=== PATIENT | female | born 1985 | race African-American/Black ===

== ENCOUNTER 2024-05-30 09:41 | Emergency (ER) | payer MEDICAID ==
[~2024-05-30] VITALS: Ht 160 cm; Wt 79.6 kg
[2024-05-30] VITALS (12 sets, daily range): BP systolic 91–109; BP diastolic 62–74
[~2024-05-30 09:41] MED LIST: FERROUS SULF325 M3 PO; MOTRIN400 MG/TAB PO; NAPROXEN375 MG PO
[2024-05-30] MEDS ORDERED: SODIUM CHLORIDE 0.9% 1,000 ML IV ONE (10:00)
[2024-05-30 10:28] LABS: URINE BILIRUBIN - DIPSTICK Negative (NEGATIVE); URINE BLOOD DIPSTICK Large (NEGATIVE); URINE GLUCOSE - DIPSTICK Negative (NEGATIVE); URINE KETONE Negative (NEGATIVE); URINE LEUK ESTERASE Negative (NEGATIVE); URINE NITRITE - DIPSTICK Negative (Negative); URINE PH 5.5 (4.5-8.0); URINE PROTEIN - DIPSTICK 30 mg/dL (NEG-TRACE); URINE UROBILINOGEN - DIPSTICK 0.2 E.U./dL (0.2)
[2024-05-30 10:28] LABS: BASO% 0.2 % (0-3); EOS% 3.3 % (0-8); HEMATOCRIT 23.3 % (37.0-47.0); HEMOGLOBIN 7.1 g/dl (12.0-16.0); IMMATURE GRANULOCYTES 0.2 % (0.0-5.0); LYMPH% 23.4 % (15-41); MEAN CELL VOLUME 70.8 fL CALC (80.0-100.0); MEAN CORPUSCULAR HGB 21.6 pG CALC (26.0-32.0); MEAN CORPUSCULAR HGB CONC 30.5 g/dL CAL (32.0-36.0); MONO% 16.8 % (2-13); NEUT# 2.88 thou/uL (2.00-7.15); NEUT% 56.1 % (42-76); RED BLOOD COUNT 3.29 mill/uL (4.20-5.60); RED CELL DISTRI WIDTH 20.9 % (11.5-15.5)
[2024-05-30 10:29] LABS: URINE COLOR Yellow; URINE RBC 50-100 RBC/hpf (0-5)
[2024-05-30 10:39] LABS: ALBUMIN 3.8 g/dL (3.2-5.0); CREATININE 0.6 mg/dL (0.5-1.0); POTASSIUM 3.6 mmol/l (3.5-5.1); TOTAL PROTEIN 10.1 g/dL (6.3-8.2)
[2024-05-30 10:50] LABS: BILIRUBIN, TOTAL 0.4 mg/dL (0.02-1.3)
== END 2024-05-30 14:23 | disposition home or self-care (01) ==
LOC: ED 09:41
PROVIDERS: Emergency Medicine
DX: O20.0 Threatened abortion (principal); Z3A.01 Less than 8 weeks gestation of pregnancy

== ENCOUNTER 2024-06-07 00:52 | Emergency (ER) | payer MEDICAID ==
[~2024-06-07] VITALS: Ht 160 cm; Wt 73.0 kg
[2024-06-07 01:10] VITALS: BP 115/76
[2024-06-07] MEDS ORDERED: SODIUM CHLORIDE 0.9% 1,000 ML IV ONE (01:20)
[2024-06-07 01:29] LABS: EOS% 1.2 % (0-8); IMMATURE GRANULOCYTES 0.5 % (0.0-5.0); LYMPH% 27.3 % (15-41); MEAN CELL VOLUME 71.2 fL CALC (80.0-100.0); MEAN CORPUSCULAR HGB 21.8 pG CALC (26.0-32.0); MEAN CORPUSCULAR HGB CONC 30.6 g/dL CAL (32.0-36.0); MONO% 14.1 % (2-13); NEUT# 3.67 thou/uL (2.00-7.15); NEUT% 56.9 % (42-76); RED BLOOD COUNT 3.12 mill/uL (4.20-5.60); RED CELL DISTRI WIDTH 20.8 % (11.5-15.5)
[2024-06-07 01:30] VITALS: BP 124/77
[2024-06-07 01:42] LABS: ALBUMIN 3.4 g/dL (3.2-5.0); BILIRUBIN, TOTAL 0.3 mg/dL (0.02-1.3); CREATININE 0.7 mg/dL (0.5-1.0); POTASSIUM 4.1 mmol/l (3.5-5.1); TOTAL PROTEIN 8.8 g/dL (6.3-8.2)
[2024-06-07 02:00] VITALS: BP 119/78
[2024-06-07 02:03] LABS: HEMATOCRIT 22.2 % (37.0-47.0); HEMOGLOBIN 6.8 g/dl (12.0-16.0)
[2024-06-07] MEDS ORDERED: KETOROLAC TROMETHAMINE 30 MG/ML SDV IV ONE (02:20)
[2024-06-07] MEDS ORDERED: ACETAMINOPHEN 500 MG TAB PO ONE (02:20)
[2024-06-07 02:55] VITALS: BP 121/85
== END 2024-06-07 02:55 | disposition home or self-care (01) ==
LOC: ED 00:52
PROVIDERS: Family Medicine
DX: O20.0 Threatened abortion (principal); Z3A.01 Less than 8 weeks gestation of pregnancy

== ENCOUNTER 2024-06-11 08:50 | Emergency (ER) | payer MEDICAID ==
[~2024-06-11] VITALS: Ht 160 cm; Wt 72.0 kg
[2024-06-11] VITALS (17 sets, daily range): BP systolic 98–125; BP diastolic 59–85
[2024-06-11] MEDS ORDERED: MORPHINE SULFATE 4 MG/ML VIAL IV ONE (08:55)
[2024-06-11] MEDS ORDERED: SODIUM CHLORIDE 0.9% 1,000 ML IV ONE (08:55)
[2024-06-11] MEDS ORDERED: ONDANSETRON HCl 4 MG/2 ML SDV IV ONE (08:55)
[2024-06-11 09:41] LABS: BASO% 0.2 % (0-3); HEMATOCRIT 20.9 % (37.0-47.0); IMMATURE GRANULOCYTES 0.6 % (0.0-5.0); LYMPH% 30.4 % (15-41); MEAN CELL VOLUME 70.4 fL CALC (80.0-100.0); MEAN CORPUSCULAR HGB 21.5 pG CALC (26.0-32.0); MEAN CORPUSCULAR HGB CONC 30.6 g/dL CAL (32.0-36.0); MONO% 12.5 % (2-13); NEUT# 2.69 thou/uL (2.00-7.15); NEUT% 53.3 % (42-76); RED BLOOD COUNT 2.97 mill/uL (4.20-5.60); RED CELL DISTRI WIDTH 20.4 % (11.5-15.5)
[2024-06-11 09:48] LABS: HEMOGLOBIN 6.4 g/dl (12.0-16.0)
[2024-06-11] MEDS ORDERED: SODIUM CHLORIDE 0.9% 500 ML IV ONE (09:55)
[2024-06-11 10:01] LABS: ALBUMIN 3.5 g/dL (3.2-5.0); BILIRUBIN, TOTAL 0.3 mg/dL (0.02-1.3); CREATININE 0.6 mg/dL (0.5-1.0); POTASSIUM 3.9 mmol/l (3.5-5.1); TOTAL PROTEIN 8.3 g/dL (6.3-8.2)
== END 2024-06-11 14:00 ==
LOC: ED 08:50
PROVIDERS: Family Medicine
DX: O03.9 Complete or unspecified spontaneous abortion without complication (principal); D64.9 Anemia, unspecified
CPT/HCPCS: P9016